=== PATIENT | female | born 1960 | race Caucasian/White ===

== ENCOUNTER 2019-01-06 07:27 | Outpatient (CLI) | payer OTHER | END 2019-01-06 07:45 | disposition home or self-care (01) | LOC: SONOGRAMA 07:27 | DX: R16.0 Hepatomegaly, not elsewhere classified (principal); E04.8 Other specified nontoxic goiter ==

== ENCOUNTER 2019-07-16 11:48 | Outpatient (CLI) | payer OTHER | END 2019-07-16 11:50 | disposition home or self-care (01) | LOC: RAD 11:48 | DX: M19.049 Primary osteoarthritis, unspecified hand (principal) ==

== ENCOUNTER 2020-05-04 11:22 | Outpatient (CLI) | payer OTHER | END 2020-05-04 11:32 | disposition home or self-care (01) | LOC: SONOGRAMA 11:22 | PROVIDERS: ATTEND Internal Medicine Endocrinology, Diabetes & Metabolism | DX: E04.1 Nontoxic single thyroid nodule (principal) ==

== ENCOUNTER → 2020-06-16 | Outpatient (CLI) | payer OTHER | END | disposition home or self-care (01) | LOC: MAMO-SONO 10:15 | PROVIDERS: ATTEND Specialist | DX: Z12.31 Encounter for screening mammogram for malignant neoplasm of breast (principal); N60.11 Diffuse cystic mastopathy of right breast; N60.12 Diffuse cystic mastopathy of left breast ==

== ENCOUNTER 2020-06-23 13:45 | Outpatient (CLI) | payer OTHER | END 2020-06-23 14:01 | disposition home or self-care (01) | LOC: NUCLEAR 13:45 | PROVIDERS: ATTEND Specialist | DX: M81.0 Age-related osteoporosis without current pathological fracture (principal) ==

== ENCOUNTER 2021-04-06 08:00 | Outpatient (CLI) | payer OTHER | END 2021-04-06 08:30 | disposition home or self-care (01) | LOC: PPH VACUNA 08:00 | DX: Z23 Encounter for immunization (principal) ==

== ENCOUNTER 2022-01-10 10:44 | Outpatient (CLI) | payer OTHER | END 2022-01-10 10:49 | disposition home or self-care (01) | LOC: MAMO-SONO 10:44 | PROVIDERS: ATTEND Specialist | DX: N60.11 Diffuse cystic mastopathy of right breast (principal); N60.12 Diffuse cystic mastopathy of left breast ==

== ENCOUNTER → 2023-04-11 10:00 | Outpatient (CLI) | payer OTHER | END | disposition home or self-care (01) | LOC: RAD | PROVIDERS: ATTEND Specialist | DX: N60.11 Diffuse cystic mastopathy of right breast (principal); N60.12 Diffuse cystic mastopathy of left breast; M19.041 Primary osteoarthritis, right hand; M19.042 Primary osteoarthritis, left hand; Z12.31 Encounter for screening mammogram for malignant neoplasm of breast ==

== ENCOUNTER 2024-05-08 11:08 | Outpatient (CLI) | payer OTHER | END 2024-05-08 11:26 | disposition home or self-care (01) | LOC: MAMO-SONO 11:08 | PROVIDERS: ATTEND Specialist | DX: N60.11 Diffuse cystic mastopathy of right breast (principal); N60.12 Diffuse cystic mastopathy of left breast; E04.1 Nontoxic single thyroid nodule ==